=== PATIENT | female | born 1950 | race African-American/Black ===

== ENCOUNTER → 2021-11-10 | Outpatient (CLI) | payer MEDICARE, BC ==
--- NOTE | 2021-11-12 10:58 | KCIC ---
BILATERAL SCREENING MAMMOGRAM, 3-D History: Routine screening. History of bilateral breast reduction in 1999. Comparison: Bilateral mammogram February 18, 2008 and prior years, [facility]. Technique: MLO and CC digital tomosynthesis (3D) images obtained. Radiologist reviewed these images on dedicated workstation. Findings: Breast Tissue Density A : The breasts are almost entirely fatty. There are a few benign calcifications bilaterally. There are no dominant masses, suspicious microcalcifications or architectural distortion. IMPRESSION: No mammographic evidence of malignancy. Recommend routine screening. BI-RADS category 2: Benign findings. The images were reviewed with computer-aided detection. Patient information is entered into reminder system with a target due date for the next screening [facility] mogram. Mammography is the most sensitive method for finding small breast cancers, but it does not detect the m all and is not a substitute for careful clinical examination. A negative mammogram does not negate a clinically suspicious finding and should not result in delay in biopsying a clinically suspicious a bnormality. "Our facility is accredited by the [employer] Mammography Program." Electronically signed by: Chan Desai MD (11/12/2021 10:55 AM) [facility]
== END ==
LOC: KCIC MAMMO 10:51
PROVIDERS: ATTEND Family Medicine
DX: Z12.31 Encounter for screening mammogram for malignant neoplasm of breast (principal)
CPT/HCPCS: 77063; 77067